=== PATIENT | female | born 1985 | race Two or more races ===

== ENCOUNTER 2020-08-10 08:13 | Emergency (ER) | payer MEDICAID, OTHER ==
[~2020-08-10] VITALS: Ht 160 cm; Wt 99.8 kg
[2020-08-10 08:25] VITALS: BP 147/84
[2020-08-10] MEDS ORDERED: traMADol HCL 50 MG TAB PO ONE (09:00)
== END 2020-08-10 09:07 | disposition home or self-care (01) ==
LOC: ER 08:13
DX: K08.89 Other specified disorders of teeth and supporting structures (principal); Z90.49 Acquired absence of other specified parts of digestive tract